=== PATIENT | male | born 1995 | race African-American/Black ===

== ENCOUNTER 2018-05-27 18:41 | Emergency (ER) | payer MEDICAID ==
[~2018-05-27] VITALS: Ht 175.3 cm; Wt 78.0 kg
[2018-05-27] MEDS ORDERED: ACETAMINOPHEN 325MG TABLET PO ONE (21:15)
[2018-05-27 21:25] VITALS: BP 124/72
== END 2018-05-27 21:27 | disposition home or self-care (01) ==
LOC: ER 20:06
DX: G89.29 Other chronic pain (principal); R51 Headache; M79.604 Pain in right leg; F17.200 Nicotine dependence, unspecified, uncomplicated; Z79.82 Long term (current) use of aspirin
CPT/HCPCS: 99282